=== PATIENT | female | born 1985 | race Caucasian/White ===

== ENCOUNTER 2019-10-31 07:36 | Emergency (ER) | payer SELFPAY ==
[2019-10-31] MEDS ORDERED: FLU Vacc QS2019-20(6MOS+)/PF 60 MCG/0.5 ML SYRINGE IM ONE (08:15)
[2019-10-31] MEDS ORDERED: HYDROmorphone 0.5 MG/0.5 ML Syringe IM ONE (08:31)
[2019-10-31] MEDS ORDERED: Amoxicillin/Clavulanate K 875-125 MG Tab PO ONE (08:31)
--- NOTE | 2019-10-31 08:38 | EDM.PDOC ---
ED HPI GENERAL MEDICAL PROBLEM - General Chief Complaint: ENT Problem Stated Complaint: DENTAL COMPLAINT Time Seen by Provider: 10/31/19 08:09 Source of Information: Reports: Patient, RN Notes Reviewed History Limitations: Reports: No Limitations - History of Present Illness INITIAL COMMENTS - FREE TEXT/NARRATIVE: Patient is a 34-year-old female who presents to the ED for the evaluation of a dental complaint. The patient notes that she has been having some issues with her teeth for the better part of a month now. She does appreciate increasing aching/stabbing pain for 2 days, and she noticed some swelling that developed overnight last night. This is to the right lower front part of her jaw. She has been taking 600 mg ibuprofen every 6 hours without much relief. She states that she was not able to sleep much last night due to the pain. Patient states that she does have some pain with chewing, and she states that it is quite hard to swallow due to the pain as well. She has not been eating much due to this. She would rate her pain at a 10 out of 10. She states that she does smoke cigarillos, since she has been 19, but denies any alcohol or other drug use. Patient notes she does not have a regular dentist, but she states that her is getting insurance at the beginning of November, and will schedule an appointment once the insurance kicks in. Right Lower Tooth/Teeth Pain Score (Numeric/FACES): 10 - Related Data Allergies Allergy/AdvReac Type Severity Reaction Status Date / Time No Known Allergies Allergy Verified 10/31/19 08:30 Home Meds: Home Meds Acetaminophen/HYDROcodone [[place] 325-5 MG] 1 tab PO Q6H PRN #8 tablet 10/31/19 [ Rx] Amoxicillin/Clavulanate K [Augmentin 875-125 MG] 1 tab PO BID #13 tablet [Rx] Biotin 1,000 mcg PO DAILY 10/31/19 [History] Past Medical History HEENT History: Reports: Impaired Vision Other HEENT History: wears eyeglasses. States "all my teeth" are bad. 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: Dermatologic History: Reports: Eczema - Infectious Disease History Infectious Disease History: Reports: Chicken Pox - Past Surgical History Female Surgical History: Reports: Hysterectomy Other Female Surgeries/Procedures: states has stage 4 endometritis Social & Family History - Tobacco Use Smoking Status *Q: Current Every Day Smoker Years of Tobacco use: 15 Packs/Tins Daily: 0.3 Second Hand Smoke Exposure: Yes - Caffeine Use Caffeine Use: Reports: Coffee, Energy Drinks, Soda, Tea - Recreational Drug Use Recreational Drug Use: No ED ROS ENT - Review of Systems Review Of Systems: See Below Constitutional: Denies: Fever, Chills HEENT: Reports: Dental Pain, Throat Pain (w swallowing). Denies: Throat Swelling Respiratory: Denies: Shortness of Breath Cardiovascular: Denies: Chest Pain GI/Abdominal: Denies: Diarrhea, Nausea, Vomiting Skin: Denies: Erythema Neurological: Denies: Headache ED EXAM, ENT - Physical Exam Exam: See Below Exam Limited By: No Limitations General Appearance: Alert, WD/WN, No Apparent Distress Eye Exam: Bilateral Eye: EOMI, Normal Inspection, PERRL Mouth/Throat: Normal Inspection, Normal Gums, Normal Lips, Normal Oropharynx, Dental Abcess (R lower front jaw, swelling appreciated to the outer face in this region. Dentition is in very poor repair all over her mouth, there are multiple cavities in many teeth, and one that has broken down the tooth so much into the dentin on the right lower back portion of her jaw.), Dental Pain. No: Drooling, Tonsillar Exudates, Tonsillar Swelling, Trismus Head: Normocephalic, Facial Swelling (R lower frontal jaw) Respiratory/Chest: No Respiratory Distress, Lungs Clear, Normal Breath Sounds, No Accessory Muscle Use, Chest Non-Tender Extremities: Normal Inspection, Normal Capillary Refill Neurological: Alert, Oriented, Normal Cognition, No Motor/Sensory Deficits Psychiatric: Normal Affect, Normal Mood Skin: Warm, Dry, Intact, Normal Color, No Rash Course - Vital Signs Last Recorded V/S: Last Vital Signs Temp 97.0 F 10/31/19 08:00 Pulse 114 H 10/31/19 08:00 Resp 16 10/31/19 08:00 BP 127/83 10/31/19 08:00 Pulse Ox 100 10/31/19 08:00 - Orders/Labs/Meds Orders: Active Orders 24 hr Category Date Time Status Influenza Vaccine Charge [RC] .DISCHARGE Care 10/31/19 08:12 Active Meds: Medications Discontinued Medications Generic Name Dose Route Start Last Admin Trade Name Freq PRN Reason Stop Dose Admin Amoxicillin/Clavulanate Potassium 1 tab 10/31/19 08:31 Augmentin 875 Mg/125 Mg PO 10/31/19 08:32 ONETIME ONE Hydromorphone HCl 0.5 mg 10/31/19 08:31 Dilaudid IM 10/31/19 08:32 ONETIME ONE Influenza Virus Vaccine 60 mcg 10/31/19 08:15 Fluzone Quad 1236-2954 Syringe IM 10/31/19 08:16 .ONCE ONE - Re-Assessments/Exams Free Text/Narrative Re-Assessment/Exam: 10/31/19 08:37 Patient presents to the ED for the evaluation of a dental complaint. Patient will be given 1 tablet of Augmentin, and 0.5 mg IM Dilaudid for initial pain relief. Due to the patient's dentition being in poor repair. She will be given a few tablets of hydrocodone/acetaminophen 5/325, for pain that is not relieved by Aleve or ibuprofen alone. She will be given instructions for conservative recommendations, and discharged home. Departure - Departure Time of Disposition: 08:38 Disposition: Home, Self-Care 01 Condition: Good Clinical Impression: Dental abscess, Dental caries extending into dentin - Discharge Information *PRESCRIPTION DRUG MONITORING PROGRAM REVIEWED*: Yes *COPY OF PRESCRIPTION DRUG MONITORING REPORT IN PATIENT CLEM: No Prescriptions: Acetaminophen/HYDROcodone [[place] 325-5 MG] 1 tab PO Q6H PRN #8 tablet PRN Reason: Pain Amoxicillin/Clavulanate K [Augmentin 875-125 MG] 1 tab PO BID #13 tablet Instructions: Dental Abscess, [id number], Diet and Dental Disease Referrals: PCP,None [Primary Care Provider] - Additional Instructions: You have been evaluated in the ED for your dental pain. You have been provided with a script for Augmentin. Please take this medication as directed (1 tab twice daily for 7 days or until gone). This antibiotic can cause diarrhea, recommend that you start a probiotic while taking this medication. Ask the pharmacist for a recommendation. Aleve provides good pain relief for dental pain. Please take 1-2 tabs twice daily as needed for pain. You were given a prescription for hydrocodone/ acetaminophen 5/325, please take 1 tab every 6 hours as needed for pain not relieved by Tylenol or ibuprofen alone. You may use hot pack/ ice packs to the affected area as tolerated in 15-20 minute intervals. You will ultimately need to find a dentist to provide definitive management of your dental pain. The [facility] in [place], [place], , is a clinic that has been known to take people that do not have dental insurance, and may provide payment plans. You might want to check with this provider, regarding your dental pain. Please return to the ED if your symptoms change or worsen. Sepsis Event Note - Evaluation Sepsis Screening Result: No Definite Risk - Focused Exam Vital Signs: Vital Signs Temp Pulse Resp BP Pulse Ox 10/31/19 08:00 97.0 F 114 H 16 127/83 100 Date Exam was Performed: 10/31/19 Time Exam was Performed: 08:33 - My Orders Last 24 Hours: My Active Orders 10/31/19 08:12 Influenza Vaccine Charge [RC] .DISCHARGE - Assessment/Plan Last 24 Hours: My Active Orders 10/31/19 08:12 Influenza Vaccine Charge [RC] .DISCHARGE
== END 2019-10-31 08:52 | disposition home or self-care (01) ==
LOC: JD.ED 07:36
DX: K04.7 Periapical abscess without sinus (principal); K02.9 Dental caries, unspecified; F17.210 Nicotine dependence, cigarettes, uncomplicated
CPT/HCPCS: 90471; 90686; 96372; 99282; A9270; J1170; 99283; G0008

== ENCOUNTER 2020-03-28 12:21 | Emergency (ER) | payer SELFPAY ==
--- NOTE | 2020-03-28 12:43 | EDM.PDOC ---
ED HPI GENERAL MEDICAL PROBLEM - General Chief Complaint: ENT Problem Stated Complaint: R SIDE OF FACE SWOLLEN Time Seen by Provider: 03/28/20 12:30 Source of Information: Reports: Patient History Limitations: Reports: No Limitations - History of Present Illness INITIAL COMMENTS - FREE TEXT/NARRATIVE: The patient presents with right lower jaw pain. This has been going on since November. She was seen here for dental pain and followed up with her dentist. She was starting to get treated and then the COVID 19 pandemic hit and her appointments were cancelled. The pain and swelling is coming back. She has no fever or chills. Onset: Gradual Duration: Week(s): Location: Reports: Face Quality: Reports: Sharp Severity: Moderate Improves with: Reports: None Worsens with: Reports: None Associated Symptoms: Reports: No Other Symptoms Right Face/Facial Pain Score (Numeric/FACES): 10 - Related Data Allergies Allergy/AdvReac Type Severity Reaction Status Date / Time No Known Allergies Allergy Verified 03/28/20 12:34 Home Meds: Home Meds Acetaminophen/HYDROcodone [[place] 325-5 MG] 1 tab PO Q6H PRN #8 tablet 10/31/19 [ Rx] Amoxicillin/Clavulanate K [Augmentin 875-125 MG] 1 tab PO BID #13 tablet [Rx] Biotin 1,000 mcg PO DAILY 10/31/19 [History] Hydrocodone/Acetaminophen [Hydrocodone-Acetamin 5-325 mg] 1 - 2 each PO Q6HR PRN #20 tablet 03/28/20 [Rx] Penicillin V Potassium 500 mg PO Q6HR #40 tab 03/28/20 [Rx] Past Medical History HEENT History: Reports: Impaired Vision Other HEENT History: wears eyeglasses. States "all my teeth" are bad. 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: Dermatologic History: Reports: Eczema - Infectious Disease History Infectious Disease History: Reports: Chicken Pox - Past Surgical History Female Surgical History: Reports: Hysterectomy Other Female Surgeries/Procedures: states has stage 4 endometritis Social & Family History - Tobacco Use Smoking Status *Q: Unknown Ever Smoked - Caffeine Use Caffeine Use: Reports: None - Recreational Drug Use Recreational Drug Use: No ED ROS ENT - Review of Systems Review Of Systems: See Below Constitutional: Reports: No Symptoms HEENT: Reports: Other (Dental pain) Respiratory: Reports: No Symptoms Cardiovascular: Reports: No Symptoms Endocrine: Reports: No Symptoms GI/Abdominal: Reports: No Symptoms : Reports: No Symptoms ED EXAM, ENT - Physical Exam Exam: See Below Exam Limited By: No Limitations General Appearance: Alert, No Apparent Distress Ears: Normal External Exam Nose: Normal Inspection Mouth/Throat: Other (Pain upon palpation to the right lower jaw with edema.) Course - Vital Signs Last Recorded V/S: Last Vital Signs Temp 97.3 F 03/28/20 12:31 Pulse 91 03/28/20 12:31 Resp 16 03/28/20 12:31 BP 131/78 03/28/20 12:31 Pulse Ox 95 03/28/20 12:31 Departure - Departure Time of Disposition: 12:45 Disposition: Home, Self-Care 01 Condition: Good Clinical Impression: Dental abscess - Discharge Information *PRESCRIPTION DRUG MONITORING PROGRAM REVIEWED*: No *COPY OF PRESCRIPTION DRUG MONITORING REPORT IN PATIENT CLEM: No Prescriptions: Hydrocodone/Acetaminophen [Hydrocodone-Acetamin 5-325 mg] 1 - 2 each PO Q6HR PRN #20 tablet PRN Reason: Pain Penicillin V Potassium 500 mg PO Q6HR #40 tab Referrals: PCP,None [Primary Care Provider] - Additional Instructions: Take the penicillin as prescribed. Take tylenol or motrin for pain. If that does not help, try the hydrocodone. Follow up with your dentist. Please return if you are worse. Sepsis Event Note - Evaluation Sepsis Screening Result: No Definite Risk - Focused Exam Vital Signs: Vital Signs Temp Pulse Resp BP Pulse Ox 03/28/20 12:31 97.3 F 91 16 131/78 95 Date Exam was Performed: 03/28/20 Time Exam was Performed: 12:37
== END 2020-03-28 13:12 | disposition home or self-care (01) ==
LOC: JD.ED 12:21
DX: K04.7 Periapical abscess without sinus (principal)
CPT/HCPCS: 99283